=== PATIENT | female | born 1945 | race Caucasian/White ===

== ENCOUNTER 2016-12-01 12:10 | Emergency (ER) | payer MEDICARE, OTHER ==
[2016-12-01] MEDS ORDERED: Sodium Chloride 0.9% 10 ML Syringe FLUSH PRN ×2 (12:26)
[2016-12-01] MEDS ORDERED: Sodium Chloride 0.9% 500 ML IV SCH (12:30)
[2016-12-01 12:51] VITALS: BP 112/73
--- NOTE | 2016-12-01 13:27 | EDM.PDOC ---
ED HPI GENERAL MEDICAL PROBLEM - General Chief Complaint: Syncope Stated Complaint: BEEN DRINKING PAST MOUTH WEAK Time Seen by Provider: 12/01/16 12:21 Source of Information: Reports: Patient, Family History Limitations: Reports: No Limitations, Intoxication - History of Present Illness INITIAL COMMENTS - FREE TEXT/NARRATIVE: brought in by daughter with a long hx of alcohol abuse, drinking daily for past 3 months. Typically 1 pint of yfn per day. Wants to get help, would like to be detoxed and get into treatment. Has hx of Dts in past, no seizures. Her last drink was this AM Duration: Chronic Associated Symptoms: Reports: No Other Symptoms Headache Pain Score (Numeric/FACES): 5 - Related Data Allergies Allergy/AdvReac Type Severity Reaction Status Date / Time No Known Allergies Allergy Verified 12/01/16 13:25 Home Meds: Home Meds Lisinopril [Lisinopril] 20 mg PO DAILY 12/01/16 [History] Past Medical History Cardiovascular History: Reports: Hypertension Social & Family History - Family History Oncologic: Reports: Cervix (mother at age 90) - Alcohol Use Days Per Week of Alcohol Use: 7 Date of Last Drink: 12/01/16 Time of Last Drink: 08:00 Alcohol Use Frequency: Daily Desires Substance Cessation Medication: Yes ED ROS GENERAL - Review of Systems Review Of Systems: See Below Constitutional: Reports: No Symptoms HEENT: Reports: No Symptoms Respiratory: Reports: No Symptoms Cardiovascular: Reports: No Symptoms Endocrine: Reports: No Symptoms GI/Abdominal: Reports: No Symptoms : Reports: No Symptoms Musculoskeletal: Reports: No Symptoms Skin: Reports: No Symptoms Neurological: Reports: No Symptoms - Physical Exam Exam: See Below Exam Limited By: Intoxication General Appearance: Alert Ears: Normal External Exam, Normal TMs Nose: Normal Inspection, Normal Mucosa Throat/Mouth: Normal Inspection, Normal Oropharynx Head Exam: Atraumatic, Normocephalic Neck: Normal Inspection, Supple Respiratory/Chest: No Respiratory Distress, Lungs Clear, No Accessory Muscle Use Cardiovascular: Normal Peripheral Pulses, Regular Rate, Rhythm, No Edema GI/Abdominal: Normal Bowel Sounds, Soft, Non-Tender Neuro Exam (Abbreviated): Alert, Oriented, CN II-XII Intact, Normal Cognition, Normal Gait, Normal Reflexes, No Motor/Sensory Deficits Back Exam: Normal Inspection, Full Range of Motion Extremities: Normal Inspection, Normal Range of Motion, Non-Tender Skin Exam: Warm, No Rash Course - Vital Signs Last Recorded V/S: Last Vital Signs Temp 36.4 C 12/01/16 13:18 Pulse 74 12/01/16 13:18 Resp 15 12/01/16 13:18 BP 112/73 12/01/16 13:18 Pulse Ox 94 L 12/01/16 13:18 - Orders/Labs/Meds Orders: Active Orders 24 hr Category Date Time Status EKG Documentation Completion [RC] ASDIRECTED Care 12/01/16 12:30 Inactive Oxygen Therapy [RC] PRN Care 12/01/16 12:28 Inactive Pulse Oximetry [RC] CONTINUOUS Care 12/01/16 12:28 Inactive EKG 12 Lead [EK] Urgent Ther 12/01/16 12:26 Stop Req Labs: Laboratory Tests 12/01/16 12/01/16 12/01/16 Range/Units 13:15 13:20 13:20 WBC 7.6 (4.5-11.0) K/uL RBC 4.59 (3.30-5.50) M/uL Hgb 14.6 (12.0-15.0) g/dL Hct 42.3 (36.0-48.0) % MCV 92 (80-98) fL MCH 32 H (27-31) pg MCHC 35 (32-36) % Plt Count 285 (150-400) K/uL Neut % (Auto) 58 (36-66) % Lymph % (Auto) 30 (24-44) % Barber % (Auto) 7 H (2-6) % Eos % (Auto) 2 (2-4) % Baso % (Auto) 2 H (0-1) % Sodium 141 (140-148) mmol/L Potassium 3.5 L (3.6-5.2) mmol/L Chloride 98 L (100-108) mmol/L Carbon Dioxide 24 (21-32) mmol/L Anion Gap 22.5 H (5.0-14.0) mmol/L BUN 15 (7-18) mg/dL Creatinine 1.1 H (0.6-1.0) mg/dL Est Cr Clr Drug Dosing 35.91 mL/min Estimated GFR (MDRD) 49 L (>60) Glucose 68 L (74-106) mg/dL Calcium 8.9 (8.5-10.1) mg/dL Total Bilirubin 0.4 (0.2-1.0) mg/dL AST 135 H (15-37) U/L ALT 95 H (12-78) U/L Alkaline Phosphatase 82 (46-116) U/L Total Protein 7.1 (6.4-8.2) g/dL Albumin 3.9 (3.4-5.0) g/dL Globulin 3.2 (2.3-3.5) g/dL Albumin/Globulin Ratio 1.2 (1.2-2.2) Urine Opiates Screen (NEGATIVE) Ur Oxycodone Screen (NEGATIVE) Urine Methadone Screen (NEGATIVE) Ur Propoxyphene Screen (NEGATIVE) Ur Barbiturates Screen (NEGATIVE) Ur Tricyclics Screen (NEGATIVE) Ur Phencyclidine Scrn (NEGATIVE) Ur Amphetamine Screen (NEGATIVE) U Methamphetamines Scrn (NEGATIVE) Urine MDMA Screen (NEGATIVE) U Benzodiazepines Scrn (NEGATIVE) U Cocaine Metab Screen (NEGATIVE) U Marijuana (THC) Screen (NEGATIVE) Ethyl Alcohol 170 mg/dL 12/01/16 Range/Units 14:06 WBC (4.5-11.0) K/uL RBC (3.30-5.50) M/uL Hgb (12.0-15.0) g/dL Hct (36.0-48.0) % MCV (80-98) fL MCH (27-31) pg MCHC (32-36) % Plt Count (150-400) K/uL Neut % (Auto) (36-66) % Lymph % (Auto) (24-44) % Barber % (Auto) (2-6) % Eos % (Auto) (2-4) % Baso % (Auto) (0-1) % Sodium (140-148) mmol/L Potassium (3.6-5.2) mmol/L Chloride (100-108) mmol/L Carbon Dioxide (21-32) mmol/L Anion Gap (5.0-14.0) mmol/L BUN (7-18) mg/dL Creatinine (0.6-1.0) mg/dL Est Cr Clr Drug Dosing mL/min Estimated GFR (MDRD) (>60) Glucose (74-106) mg/dL Calcium (8.5-10.1) mg/dL Total Bilirubin (0.2-1.0) mg/dL AST (15-37) U/L ALT (12-78) U/L Alkaline Phosphatase (46-116) U/L Total Protein (6.4-8.2) g/dL Albumin (3.4-5.0) g/dL Globulin (2.3-3.5) g/dL Albumin/Globulin Ratio (1.2-2.2) Urine Opiates Screen Negative (NEGATIVE) Ur Oxycodone Screen Negative (NEGATIVE) Urine Methadone Screen Negative (NEGATIVE) Ur Propoxyphene Screen Negative (NEGATIVE) Ur Barbiturates Screen Negative (NEGATIVE) Ur Tricyclics Screen Negative (NEGATIVE) Ur Phencyclidine Scrn Negative (NEGATIVE) Ur Amphetamine Screen Negative (NEGATIVE) U Methamphetamines Scrn Negative (NEGATIVE) Urine MDMA Screen Negative (NEGATIVE) U Benzodiazepines Scrn Negative (NEGATIVE) U Cocaine Metab Screen Negative (NEGATIVE) U Marijuana (THC) Screen Negative (NEGATIVE) Ethyl Alcohol mg/dL Meds: Medications Discontinued Medications Generic Name Dose Route Start Last Admin Trade Name Freq PRN Reason Stop Dose Admin Sodium Chloride 500 mls @ 999 mls/hr 12/01/16 12:30 12/01/16 12:33 Normal Saline IV 999 mls/hr .BOLUS BREANNA Administration Lorazepam 1 mg 12/01/16 14:20 12/01/16 14:25 Ativan PO 12/01/16 14:21 1 mg ONETIME ONE Administration Sodium Chloride 10 ml 12/01/16 12:26 12/01/16 12:33 Saline Flush FLUSH 10 ml ASDIRECTED PRN Administration Keep Vein Open Sodium Chloride 10 ml 12/01/16 12:26 12/01/16 12:33 Saline Flush FLUSH 10 ml ASDIRECTED PRN Administration Keep Vein Open Departure - Departure Time of Disposition: 14:28 Disposition: DC/Tfer to Other 70 Condition: Good Clinical Impression: Alcohol abuse - Discharge Information Forms: ED Department Discharge - Problem List & Annotations (1) Alcohol abuse SNOMED Code(s): 33393573 Code(s): F10.10 - ALCOHOL ABUSE, UNCOMPLICATED Status: Acute Current Visit: Yes - Problem List Review Problem List Initiated/Reviewed/Updated: Yes - My Orders Last 24 Hours: My Active Orders 12/01/16 12:26 EKG 12 Lead [EK] Urgent 12/01/16 12:28 Oxygen Therapy [RC] PRN Pulse Oximetry [RC] CONTINUOUS 12/01/16 12:30 EKG Documentation Completion [RC] ASDIRECTED - Assessment/Plan Last 24 Hours: My Active Orders 12/01/16 12:26 EKG 12 Lead [EK] Urgent 12/01/16 12:28 Oxygen Therapy [RC] PRN Pulse Oximetry [RC] CONTINUOUS 12/01/16 12:30 EKG Documentation Completion [RC] ASDIRECTED Assessment:: 71 year old with acute on chronic alcohol abuse that wants to stop. Currently drinking 1 pint per day yfn, last drink this AM. Hx of mild DTs in past, no seizures, has safely detoxed at [place] in past. Work up here with blood alcohol at 0.17, neg urine tox screen and normal CBC, CMP . She is medically cleared to be discharged to care of daughter for detox treatment at [facility]. Plan: Will be discharged with daughter to care of [facility]. 1 mg of ativan given orally before discharge.
[2016-12-01] MEDS ORDERED: LORazepam 1 MG Tab PO ONE (14:20)
== END 2016-12-01 14:46 | disposition other institution (70) ==
LOC: JP.ED 12:10
DX: F10.10 Alcohol abuse, uncomplicated (principal); I10 Essential (primary) hypertension; Z79.899 Other long term (current) drug therapy
CPT/HCPCS: 36415; 80053; 80305; 85025; 99285; A9270; G0480; J7040; J7050